=== PATIENT | female | born 1965 | race American Indian/Alaskan Native ===

== ENCOUNTER 2019-11-24 17:03 | Observation (INO) | payer BC ==
--- NOTE | 2019-11-24 17:24 | Emergency Department Report ---
Chief Complaint: Chest Pain Stated Complaint: CP/RT ARM NUMB - HPI History of Present Illness: 54 y/o fem p/w right sided numbness, pain, abd pain, reported hx of cp symptoms started within past 45 minutes accu check pending multiple complaints motor exam non focal endorses dec sensation to light touch to right arm and leg walks with steady gait cva vs radiculopathy Vital Signs 11/24/19 17:21 Temperature 98 F Pulse Rate 103 H Respiratory 20 Rate Blood Pressure 151/102 O2 Sat by Pulse 98 Oximetry MSE screening note: Focused history and physical exam performed. Due to findings the following was ordered: ED Disposition for MSE Condition: Stable
[2019-11-24 17:59] LABS: Basophils # (Auto) 0.1 K/mm3 (0.0-0.1); Basophils % (Auto) 0.9 % (0.0-1.8); Eosinophils # (Auto) 0.1 K/mm3 (0.0-0.4); Eosinophils % (Auto) 0.6 % (0.0-4.3); Hematocrit 42.9 % (30.3-42.9); Hemoglobin 14.4 gm/dl (10.1-14.3); Lymphocytes # (Auto) 3.8 K/mm3 (1.2-5.4); Lymphocytes % (Auto) 40.8 % (13.4-35.0); Mean Corpuscular HGB Conc 34 % (30-34); Mean Corpuscular Volume 87 fl (79-97); Monocytes # (Auto) 0.9 K/mm3 (0.0-0.8); Monocytes % (Auto) 9.6 % (0.0-7.3); Platelet Count 260 K/mm3 (140-440); Red Blood Count 4.95 M/mm3 (3.65-5.03); Red Cell Distribution Width 13.6 % (13.2-15.2)
--- NOTE | 2019-11-24 17:59 | Emergency Department Report ---
ED Neuro Deficit HPI - General Chief Complaint: Chest Pain Stated Complaint: CP/RT ARM NUMB Time Seen by Provider: 11/24/19 17:30 Source: patient Mode of arrival: Ambulatory Limitations: No Limitations - History of Present Illness Initial Comments: [facility] Date of Service: 11/24/2019 17:22:59 Impression: RO Acute Ischemic Stroke Comments: 54 year old female who presents with right side numbness. Presentation may be due to small stroke vs complex migraines vs anxiety. Mechanism of Stroke: Not Clear Metrics: Last Known Well: Unknown [facility] Notification Time: 11/24/2019 17:22:21 Arrival Time: 11/24/2019 17:03:00 Stamp Time: 11/24/2019 17:22:59 Time First Login Attempt: 11/24/2019 17:29:05 Video Start Time: 11/24/2019 17:29:05 Symptoms: Right side numbness NIHSS Start Assessment Time: 11/24/2019 17:43:04 Patient is not a candidate for tPA. Patient was not deemed candidate for tPA thrombolytics because of Last Well Known Above 4.5 Hours. Video End Time: 11/24/2019 17:50:00 CT head was reviewed. Presentation is not suggestive of Large Vessel Occlusive disease. Advanced imaging was not obtained as the presentation was not suggestive of Large Vessel Occlusive Disease. ED Physician notified of diagnostic impression and management plan on 11/24/2019 17:57:10 Our recommendations are outlined below. Recommendations: Activate Stroke Protocol Admission/Order Set Stroke/Telemetry Floor Neuro Checks Bedside Swallow Eval DVT Prophylaxis IV Fluids, Normal Saline Head of Bed Below 30 Degrees Euglycemia and Avoid Hyperthermia (PRN Acetaminophen) Antiplatelet Therapy Recommended Recommended Scan: MRI Head Without Contrast MRA Head and Neck Without Contrast When Available - Stroke Protocol Echocardiogram - Transthoracic Echocardiogram Lipid Panel to Be Obtained, if Not Done in the Last Three Months Therapies: Physical Therapy, Occupational Therapy, Speech Therapy Assessment When Applicable Dysphaghia Screen: Swallow Evaluation, Bedside NPO Until Swallow Evaluation DVT prophylaxis: Choice of Primary Team Disposition: Follow up with Teleneurology Follow up Sign Out: Discussed with Emergency Department Provider History of Present Illness: Patient is a 54 year old Female. Patient was brought by private transportation with symptoms of Right side numbness 54 year old female who presents to the hospital because of right side numbness, right leg pain, and numbness in the bottom of her left foot. She has had symptoms on and off for the past week. She presented today because she was also having tingling abdominal pain and nausea. CT head was reviewed. Examination: 1A: Level of Consciousness - Alert; keenly responsive + 0 1B: Ask Month and Age - Both Questions Right + 0 1C: Blink Eyes & Squeeze Hands - Performs Both Tasks + 0 2: Test Horizontal Extraocular Movements - Normal + 0 3: Test Visual [place] - No Visual Loss + 0 4: Test Facial Palsy (Use Grimace if Obtunded) - Normal symmetry + 0 5A: Test Left Arm Motor Drift - No Drift for 10 Seconds + 0 5B: Test Right Arm Motor Drift - No Drift for 10 Seconds + 0 6A: Test Left Leg Motor Drift - No Drift for 5 Seconds + 0 6B: Test Right Leg Motor Drift - No Drift for 5 Seconds + 0 7: Test Limb Ataxia (FNF/Heel-Gilliland) - No Ataxia + 0 8: Test Sensation - Mild-Moderate Loss: Less Sharp/More Dull + 1 9: Test Language/Aphasia - Normal; No aphasia + 0 10: Test Dysarthria - Normal + 0 11: Test Extinction/Inattention - No abnormality + 0 NIHSS Score: 1 Patient was informed the Neurology Consult would happen via TeleHealth consult by way of interactive audio and video telecommunications and consented to receiving care in this manner. Due to the immediate potential for life-threatening deterioration due to underlying acute neurologic illness, I spent 35 minutes providing critical care. This time includes time for face to face visit via telemedicine, review of medical records, imaging studies and discussion of findings with providers, the patient and/or family. Dr Sara Saavedra [facility] Case [id number] - Related Data Allergies/Adverse Reactions: Allergies Allergy/AdvReac Type Severity Reaction Status Date / Time No Known Allergies Allergy Unverified 11/24/19 17:05 ED Review of Systems ROS: Stated complaint: CP/RT ARM NUMB Other details as noted in HPI ED Past Medical Hx - Past Medical History Previous Medical History?: Yes Additional medical history: hyperthyroid - Surgical History Past Surgical History?: Yes Additional Surgical History: myomectomy. eye surgery - Social History Smoking Status: Never Smoker Substance Use Type: None ED Neuro Physical Exam - General Limitations: No Limitations Suspected Stroke: Yes - NIHSS Assessment Interval: Baseline 1a. Level of Consciousness: alert/keenly responsive 1b. LOC Questions: answers both correctly 1c. LOC Commands: performs tasks correctly 2. Best Gaze: normal 3. Visual: no visual loss 4. Facial Palsy: normal symmetrical movement 5b. Motor Arm Right: no drift 5a. Motor Arm Left: no drift 6a. Motor Leg Left: no drift 6b. Motor Leg Right: no drift 7. Limb Ataxia: absent 8. Sensory: mild/moderate sensory loss 9. Best Language: no aphasia 10. Dysarthria: normal 11. Extinction/Inattention: no abnormality Total Score: 1 Stroke Severity: Minor Stroke ED Course Vital Signs 11/24/19 17:21 Temperature 98 F Pulse Rate 103 H Respiratory 20 Rate Blood Pressure 151/102 O2 Sat by Pulse 98 Oximetry Critical care attestation.: If time is entered above; I have spent that time in minutes in the direct care of this critically ill patient, excluding procedure time. ED Disposition Clinical Impression: Numbness Disposition: -09 OP ADMIT IP TO THIS HOSP Is pt being admited?: Yes Condition: Stable
[2019-11-24 18:09] LABS: INR 0.93 (0.87-1.13)
[2019-11-24 18:10] LABS: Thrombin Time 41.9 Sec. (15.1-19.6)
--- NOTE | 2019-11-24 18:12 | Cat Scan Report ---
CT HEAD WITHOUT CONTRAST INDICATION / CLINICAL INFORMATION: Stroke symptoms. TECHNIQUE: All CT scans at this location are performed using CT dose reduction for ALARA by means of automated e xposure control. COMPARISON: None available. FINDINGS: HEMORRHAGE: No evidence of intracranial hemorrhage or extra-axial fluid collection. EXTRA-AXIAL SPACES: Cortical sulci, sylvian fissures and basilar cisterns have an unremarkable appear ance. VENTRICULAR SYSTEM: The ventricular system is of normal size and configuration. CEREBRAL PARENCHYMA: No areas of abnormal brain parenchymal attenuation are identified. There is no i ndication of recent infarction. MIDLINE SHIFT OR HERNIATION: There is no mass effect. CEREBELLUM / BRAINSTEM: There is a subtle area of decreased attenuation in the left side of the mary. Small (5 mm diameter) pontine infarct, age indeterminant, cannot be excluded. INTRACRANIAL VESSELS:No abnormalities are identified on this noncontrast head CT. ORBITS: visualized portions of the orbits have an unremarkable appearance. SOFT TISSUES of HEAD: No significant abnormality. CALVARIUM: Evaluation of bone windows reveals no abnormalities. PARANASAL SINUSES / MASTOID AIR CELLS: Paranasal sinuses are free from inflammatory mucosal disease. Mastoid air cells are normally pneumatized. Craniocervical junction: There are about 8 mm of cerebellar tonsillar ectopia. There is crowding of t he medulla and cerebellar tonsils at the foramen magnum with decreased CSF attenuation material at th is level. Possibility of Chiari I malformation should be considered. IMPRESSION: 1. Small (5 mm diameter pontine infarction is suspected. This is age indeterminate. 2. 8 mm of cerebellar tonsillar ectopia. Consider possible Chiari I malformation. Signer Name: Andrew Medrano MD Signed: 11/24/2019 6:07 PM Workstation Name: [id number] [email or web address]
[2019-11-24 18:16] LABS: Alanine Aminotransferase 13 units/L (7-56); Albumin 4.2 g/dL (3.9-5); BUN/Creatinine Ratio 13; Blood Urea Nitrogen 8 mg/dL (7-17); Calcium 11.5 mg/dL (8.4-10.2); Hemolysis Index 28
[2019-11-24 18:17] LABS: Creatine Kinase MB < 1.0 ng/mL (0.0-4.0)
--- NOTE | 2019-11-24 19:25 | Emergency Department Report ---
ED Neuro Deficit HPI - General Chief Complaint: Chest Pain Stated Complaint: CP/RT ARM NUMB Time Seen by Provider: 11/24/19 17:30 Source: patient Mode of arrival: Ambulatory Limitations: No Limitations - History of Present Illness Initial Comments: 54-year-old female with history of hypothyroidism presents to ED with right arm and leg numbness 4 days. Patient denies weakness, headache. She also reports associated pain in the extremities. Patient denies neck or back pain. She reports right-sided chest pain that began approximately 45 minutes prior to arrival. She denies any shortness of breath, nausea or vomiting, or leg swelling. -: days(s) (4) Location: right arm, right leg Severity: moderate Improves With: none Worsens With: none On Anticoagulants: No Associated Symptoms: chest pain. denies: cough, diaphoresis, fever/chills, nausea/vomiting, shortness of breath - Related Data Home Medications: Previous Rx's Medication Instructions Recorded Last Taken Type Aspirin EC [Halfprin EC] 81 mg PO QDAY #30 tablet. 11/25/19 Unknown Rx AtorvaSTATin [Lipitor] 40 mg PO QHS #30 tab 11/25/19 Unknown Rx Allergies/Adverse Reactions: Allergies Allergy/AdvReac Type Severity Reaction Status Date / Time No Known Allergies Allergy Verified 11/24/19 22:52 ED Review of Systems ROS: Stated complaint: CP/RT ARM NUMB Other details as noted in HPI Comment: All other systems reviewed and negative Constitutional: denies: chills, fever Respiratory: denies: shortness of breath Cardiovascular: chest pain Gastrointestinal: abdominal pain. denies: nausea, vomiting Neurological: numbness. denies: headache ED Past Medical Hx - Past Medical History Previous Medical History?: Yes Additional medical history: hyperthyroid - Surgical History Past Surgical History?: Yes Additional Surgical History: myomectomy. eye surgery - Social History Smoking Status: Never Smoker Substance Use Type: None - Medications Home Medications: Home Medications Medication Instructions Recorded Confirmed Last Taken Type Aspirin EC [Halfprin EC] 81 mg PO QDAY #30 tablet. 11/25/19 Unknown Rx AtorvaSTATin [Lipitor] 40 mg PO QHS #30 tab 11/25/19 Unknown Rx ED Neuro Physical Exam - General Limitations: No Limitations General appearance: alert, in no apparent distress Suspected Stroke: Yes - Head Head exam: Present: atraumatic, normocephalic - Eye Eye exam: Present: normal appearance, PERRL, EOMI - ENT ENT exam: Present: mucous membranes moist - Neck Neck exam: Present: normal inspection - Respiratory Respiratory exam: Present: normal lung sounds bilaterally. Absent: respiratory distress - Cardiovascular Cardiovascular Exam: Present: regular rate, normal rhythm - GI/Abdominal GI/Abdominal exam: Present: soft. Absent: distended, tenderness - Extremities Exam Extremities exam: Present: normal inspection. Absent: pedal edema, calf tenderness - Neurological Exam Neurological exam: Present: alert, oriented X3 - NIHSS Assessment Interval: Baseline 1a. Level of Consciousness: alert/keenly responsive 1b. LOC Questions: answers both correctly 1c. LOC Commands: performs tasks correctly 2. Best Gaze: normal 3. Visual: no visual loss 4. Facial Palsy: normal symmetrical movement 5b. Motor Arm Right: no drift 5a. Motor Arm Left: no drift 6a. Motor Leg Left: no drift 6b. Motor Leg Right: no drift 7. Limb Ataxia: absent 8. Sensory: mild/moderate sensory loss 9. Best Language: no aphasia 10. Dysarthria: normal 11. Extinction/Inattention: no abnormality Total Score: 1 Stroke Severity: Minor Stroke ED Course Vital Signs 11/24/19 11/24/19 11/24/19 17:21 17:55 18:00 Temperature 98 F Pulse Rate 103 H 81 75 Respiratory 20 20 15 Rate Blood Pressure 151/102 O2 Sat by Pulse 98 99 97 Oximetry 11/24/19 11/24/19 11/24/19 18:16 18:30 18:45 Temperature Pulse Rate 73 80 72 Respiratory 9 L 15 11 L Rate Blood Pressure 132/90 131/87 O2 Sat by Pulse 99 99 98 Oximetry 11/24/19 11/24/19 11/24/19 19:00 19:13 19:15 Temperature Pulse Rate 77 78 Respiratory 18 17 15 Rate Blood Pressure 132/86 132/86 132/76 O2 Sat by Pulse 99 98 Oximetry 11/24/19 11/24/19 11/24/19 21:58 22:00 22:10 Temperature Pulse Rate Respiratory Rate Blood Pressure 124/82 130/85 130/85 O2 Sat by Pulse 98 99 95 Oximetry 11/24/19 11/24/19 11/24/19 22:20 22:30 22:40 Temperature Pulse Rate Respiratory Rate Blood Pressure 110/64 113/72 132/76 O2 Sat by Pulse 95 95 Oximetry 11/24/19 11/24/19 11/24/19 22:50 23:00 23:10 Temperature Pulse Rate Respiratory Rate Blood Pressure 116/82 112/72 112/72 O2 Sat by Pulse 97 95 Oximetry 11/24/19 11/24/19 11/24/19 23:20 23:30 23:40 Temperature Pulse Rate Respiratory Rate Blood Pressure 116/73 113/70 113/70 O2 Sat by Pulse 96 92 95 Oximetry 11/24/19 11/25/19 23:50 00:00 Temperature Pulse Rate Respiratory Rate Blood Pressure 116/72 116/72 O2 Sat by Pulse 96 97 Oximetry - Lab Data Result diagrams: 11/25/19 00:24 11/25/19 00:24 Lab Results 11/24/19 11/24/19 11/24/19 Range/Units 17:51 17:51 17:51 WBC 9.3 (4.5-11.0) K/mm3 RBC 4.95 (3.65-5.03) M/mm3 Hgb 14.4 H (10.1-14.3) gm/dl Hct 42.9 (30.3-42.9) % MCV 87 (79-97) fl MCH 29 (28-32) pg MCHC 34 (30-34) % RDW 13.6 (13.2-15.2) % Plt Count 260 (140-440) K/mm3 Lymph % (Auto) 40.8 H (13.4-35.0) % Dickens % (Auto) 9.6 H (0.0-7.3) % Eos % (Auto) 0.6 (0.0-4.3) % Baso % (Auto) 0.9 (0.0-1.8) % Lymph # 3.8 (1.2-5.4) K/mm3 Dickens # 0.9 H (0.0-0.8) K/mm3 Eos # 0.1 (0.0-0.4) K/mm3 Baso # 0.1 (0.0-0.1) K/mm3 Seg Neutrophils % 48.1 (40.0-70.0) % Seg Neutrophils # 4.5 (1.8-7.7) K/mm3 PT 12.6 (12.2-14.9) Sec. INR 0.93 (0.87-1.13) APTT 30.0 (24.2-36.6) Sec. Thrombin Time 41.9 H (15.1-19.6) Sec. D-Dimer (0-234) ng/mlDDU Sodium 137 (137-145) mmol/L Potassium 4.1 (3.6-5.0) mmol/L Chloride 101.1 (98-107) mmol/L Carbon Dioxide 22 (22-30) mmol/L Anion Gap 18 mmol/L BUN 8 (7-17) mg/dL Creatinine 0.6 L (0.7-1.2) mg/dL Estimated GFR > 60 ml/min BUN/Creatinine Ratio 13 % Glucose 122 H (65-100) mg/dL Calcium 11.5 H (8.4-10.2) mg/dL Total Bilirubin 0.40 (0.1-1.2) mg/dL AST 15 (5-40) units/L ALT 13 (7-56) units/L Alkaline Phosphatase 125 (35-129) units/L Total Creatine Kinase 73 (30-135) units/L CK-MB (CK-2) < 1.0 (0.0-4.0) ng/mL CK-MB (CK-2) Rel Index 1.3 (0-4) Troponin T < 0.010 (0.00-0.029) ng/mL Total Protein 8.0 (6.3-8.2) g/dL Albumin 4.2 (3.9-5) g/dL Albumin/Globulin Ratio 1.1 % 11/24/19 Range/Units 18:50 WBC (4.5-11.0) K/mm3 RBC (3.65-5.03) M/mm3 Hgb (10.1-14.3) gm/dl Hct (30.3-42.9) % MCV (79-97) fl MCH (28-32) pg MCHC (30-34) % RDW (13.2-15.2) % Plt Count (140-440) K/mm3 Lymph % (Auto) (13.4-35.0) % Dickens % (Auto) (0.0-7.3) % Eos % (Auto) (0.0-4.3) % Baso % (Auto) (0.0-1.8) % Lymph # (1.2-5.4) K/mm3 Dickens # (0.0-0.8) K/mm3 Eos # (0.0-0.4) K/mm3 Baso # (0.0-0.1) K/mm3 Seg Neutrophils % (40.0-70.0) % Seg Neutrophils # (1.8-7.7) K/mm3 PT (12.2-14.9) Sec. INR (0.87-1.13) APTT (24.2-36.6) Sec. Thrombin Time (15.1-19.6) Sec. D-Dimer 689.21 H (0-234) ng/mlDDU Sodium (137-145) mmol/L Potassium (3.6-5.0) mmol/L Chloride (98-107) mmol/L Carbon Dioxide (22-30) mmol/L Anion Gap mmol/L BUN (7-17) mg/dL Creatinine (0.7-1.2) mg/dL Estimated GFR ml/min BUN/Creatinine Ratio % Glucose (65-100) mg/dL Calcium (8.4-10.2) mg/dL Total Bilirubin (0.1-1.2) mg/dL AST (5-40) units/L ALT (7-56) units/L Alkaline Phosphatase (35-129) units/L Total Creatine Kinase (30-135) units/L CK-MB (CK-2) (0.0-4.0) ng/mL CK-MB (CK-2) Rel Index (0-4) Troponin T (0.00-0.029) ng/mL Total Protein (6.3-8.2) g/dL Albumin (3.9-5) g/dL Albumin/Globulin Ratio % - EKG Data -: EKG Interpreted by Pa EKG shows normal: sinus rhythm, axis, intervals, QRS complexes, ST-T waves Rate: normal Interpretation: no acute changes, LVH - Radiology Data Radiology results: report reviewed, image reviewed - Medical Decision Making Pt w/ right sided numbness and right sided chest pain. Initially presented as stroke alert. CT Head negative for any acute findings. Pt seen and evaluated by teleneurologist, recommends admission for stroke workup. Not a candidate for tPA or interventional procedures. D-dimer obtained due to chest pain and found to be elevated. CTA Chest negative for PE or any other acute findings. Will admit to hospitalist for further workup. - Differential Diagnosis CVA, anxiety, ACS, PE Critical care attestation.: If time is entered above; I have spent that time in minutes in the direct care of this critically ill patient, excluding procedure time. ED Disposition Clinical Impression: Numbness, Acute chest pain Disposition: DC-09 OP ADMIT IP TO THIS HOSP Is pt being admited?: Yes Condition: Stable Time of Disposition: 21:47
--- NOTE | 2019-11-24 19:38 | XRay Report ---
CHEST 1 VIEW INDICATION: hx of abd pain cp. COMPARISON: None. FINDINGS: Support devices: None. Heart: Normal. Lungs/Pleura: No acute pulmonary or pleural findings. IMPRESSION: 1. No acute findings. Signer Name: Ollie Alfredo MD Signed: 11/24/2019 7:33 PM Workstation Name: [id number]
--- NOTE | 2019-11-24 21:11 | Cat Scan Report ---
CTA CHEST WITH IV CONTRAST INDICATION: chest pain. TECHNIQUE: Axial CT images were obtained through the chest after injection of IV contrast. 3 plane MIP reconstru ctions were produced. All CT scans at this location are performed using CT dose reduction for ALARA b y means of automated exposure control. COMPARISON: No prior chest CTs. FINDINGS: Pulmonary Arteries: No pulmonary emboli. Thoracic Aorta: No acute abnormality. Heart: Normal. Lungs: No acute air space or interstitial disease. Within the right lower lobe, there is a 4 mm nonca lcified nodule on series 2 image 207. There is scarring with chronic collapse in the right middle lob e. Pleura: No pleural effusion. No pneumothorax. Lymph Nodes: No significant adenopathy. Additional Findings: None. Upper Abdomen: No acute findings. Skeletal Structures: No significant osseous abnormality. IMPRESSION: 1. No CT evidence for pulmonary embolism. 2. No acute findings. 3. 4 mm noncalcified superior right lower lobe pulmonary nodule. See below for recommendations. 4. Scarring and volume loss in the right middle lobe. INCIDENTAL PULMONARY NODULE RECOMMENDATIONS Solid Nodule size <6 mm -- Single or Multiple - Low Risk Patient: No routine follow-up - High Risk Patient: Optional CT at 12 months Note These recommendations do not apply to lung cancer screening, patients with immunosuppression, o r patients with known primary cancer. Note Newly detected indeterminate nodule in persons 35 years of age or older. Persons under the age of 35 should not receive follow-up unless there is a known primary cancer. Low Risk Patient -- minimal or absent history of smoking and of other known risk factors. High Risk Patient -- history of smoking or of other known risk factors. Nodule dimensions are average of long and short axes, rounded to the nearest millimeter. Based on 2017 Fleischner Society Guidelines found in Radiology 2017 284:228-243. [email or web address] [email or web address] Signer Name: Ollie Alfredo MD Signed: 11/24/2019 9:07 PM Workstation Name: [id number]
[2019-11-24] MEDS ORDERED: ASPIRIN 325 MG TAB PO ONE (21:39)
[2019-11-24] MEDS ORDERED: ONDANSETRON 4 MG/2 ML INJ IV PRN (22:34)
[2019-11-24] MEDS ORDERED: METOCLOPRAMIDE 10 MG TAB PO PRN (22:34)
[2019-11-24] MEDS ORDERED: ACETAMINOPHEN 325 MG TAB PO PRN (22:34)
[2019-11-24] MEDS ORDERED: MAGNESIUM HYDROXIDE (MOM) ORAL LIQD UDC PO PRN (22:34)
[2019-11-24] MEDS ORDERED: MORPHINE 4 MG/1 ML INJ IV PRN (22:34)
[2019-11-24] MEDS ORDERED: PROMETHAZINE 25 MG RECT SUPP PR PRN (22:34)
[2019-11-24] MEDS ORDERED: NITROGLYCERIN 0.4 MG TAB SUBL SL PRN (22:34)
--- NOTE | 2019-11-24 23:41 | History and Physical Report ---
History of Present Illness Date of examination: 11/24/19 Date of admission: 11/24/2019 Chief complaint: Chest pain Right upper extremity numbness and weakness History of present illness: 54-year-old -[place] female presenting to the emergency room today compl aining of right-sided arm weakness which has been ongoing for about 4 days. Denies any fever or chills, no nausea vomiting and no diarrhea. Less than an hour prior to reporting to the emergency room patient also indicates that she was having right-sided chest pain. There was no no relieving or exacerbating factor. Patient has had some mild headache, denies any blurry vision and denies any dizziness. Evaluation and work-up in the ER was unremarkable. Patient to be further evaluated for possible CVA. Past History Past Medical History: hyperthyroidism Past Surgical History: Other (Myomectomy, eye surgery in childhood) Social history: no significant social history Family history: hypertension (Hypertension in grandmother) Medications and Allergies Allergies Allergy/AdvReac Type Severity Reaction Status Date / Time No Known Allergies Allergy Verified 11/24/19 22:52 Home Medications Medication Instructions Recorded Confirmed Last Taken Type No Known Home Medications [No 11/25/19 11/25/19 Unknown History Reported Home Medications] Active Meds: Active Medications Acetaminophen (Tylenol) 650 mg PO Q4H PRN PRN Reason: Pain MILD(1-3)/Fever >100.5/COCHRAN Aspirin (Aspirin) 325 mg PO QDAY [facility] Bisacodyl (Dulcolax) [address] QDAY PRN PRN Reason: Constipation Magnesium Hydroxide (Milk Of Magnesia) 30 ml PO Q4H PRN PRN Reason: Constipation Metoclopramide HCl (Reglan) 10 mg PO Q6H PRN PRN Reason: Nausea And Vomiting Morphine Sulfate (Morphine) 2 mg IV Q5MIN PRN PRN Reason: Chest Pain Nitroglycerin (Nitrostat) 0.4 mg SL Q5M PRN PRN Reason: Chest Pain Ondansetron HCl (Zofran) 4 mg IV Q8H PRN PRN Reason: Nausea And Vomiting Promethazine HCl (Phenergan) [address] Q6H PRN PRN Reason: Nausea And Vomiting Sodium Chloride (Sodium Chloride Flush Syringe 10 Ml) 10 ml IV BID [facility] Sodium Chloride (Sodium Chloride Flush Syringe 10 Ml) 10 ml IV PRN PRN PRN Reason: LINE FLUSH Review of Systems Constitutional: no fever, no chills Cardiovascular: chest pain, no palpitations, no syncope Respiratory: no cough, no shortness of breath Gastrointestinal: no nausea, no vomiting, no diarrhea Integumentary: no rash, no pruritis Neurological: weakness, numbness, headaches Exam - Constitutional Vitals: Temp Pulse Resp BP Pulse Ox 98 F 77 15 132/76 99 11/24/19 17:21 11/24/19 19:00 11/24/19 19:15 11/24/19 19:15 11/24/19 19:00 General appearance: Present: no acute distress, well-nourished - EENT Eyes: Present: PERRL, EOM intact ENT: hearing intact, clear oral mucosa, dentition normal - Neck Neck: Present: supple, normal ROM - Respiratory Respiratory effort: normal Respiratory: bilateral: CTA - Cardiovascular Rhythm: regular Heart Sounds: Present: S1 & S2 - Extremities Extremities: no ischemia, No edema, Full ROM Peripheral Pulses: within normal limits - Abdominal General gastrointestinal: Present: soft, non-tender, non-distended - Integumentary Integumentary: Present: clear, warm, dry - Musculoskeletal Musculoskeletal: strength equal bilaterally - Psychiatric Psychiatric: appropriate mood/affect, intact judgment & insight, cooperative - Neurologic Neurologic: CNII-XII intact, moves all extremities Results - Labs CBC & Chem 7: 11/25/19 00:24 11/25/19 00:24 Labs: Abnormal lab results 11/24/19 11/24/19 11/24/19 Range/Units 17:51 17:51 17:51 Hgb 14.4 H (10.1-14.3) gm/dl Lymph % (Auto) 40.8 H (13.4-35.0) % Harris % (Auto) 9.6 H (0.0-7.3) % Harris # 0.9 H (0.0-0.8) K/mm3 Thrombin Time 41.9 H (15.1-19.6) Sec. D-Dimer (0-234) ng/mlDDU Creatinine 0.6 L (0.7-1.2) mg/dL Glucose 122 H (65-100) mg/dL Calcium 11.5 H (8.4-10.2) mg/dL 11/24/19 Range/Units 18:50 Hgb (10.1-14.3) gm/dl Lymph % (Auto) (13.4-35.0) % Harris % (Auto) (0.0-7.3) % Harris # (0.0-0.8) K/mm3 Thrombin Time (15.1-19.6) Sec. D-Dimer 689.21 H (0-234) ng/mlDDU Creatinine (0.7-1.2) mg/dL Glucose (65-100) mg/dL Calcium (8.4-10.2) mg/dL Assessment and Plan - Patient Problems (1) Acute chest pain Current Visit: Yes Status: Acute Plan to address problem: Possibly noncardiac. However will check serial cardiac enzymes. Patient will be placed on aspirin, sublingual nitroglycerin and IV morphine as needed for chest pain. Will monitor EKG. (2) Numbness Current Visit: Yes Status: Acute Plan to address problem: Etiology is unclear however patient is to be worked up for CVA (3) DVT prophylaxis Current Visit: Yes Status: Acute Plan to address problem: Patient placed on subcutaneous heparin. (4) Full code status Current Visit: Yes Status: Acute
[2019-11-25 01:00] LABS: Basophils % (Auto) 0.5 % (0.0-1.8); Eosinophils # (Auto) 0.1 K/mm3 (0.0-0.4); Eosinophils % (Auto) 0.7 % (0.0-4.3); Hemoglobin 14.5 gm/dl (10.1-14.3); Mean Corpuscular HGB Conc 33 % (30-34); Mean Corpuscular Volume 87 fl (79-97); Monocytes # (Auto) 0.7 K/mm3 (0.0-0.8); Monocytes % (Auto) 7.2 % (0.0-7.3); Platelet Count 280 K/mm3 (140-440); Red Blood Count 5.04 M/mm3 (3.65-5.03); Red Cell Distribution Width 13.4 % (13.2-15.2)
[2019-11-25 01:13] LABS: BUN/Creatinine Ratio 15; Blood Urea Nitrogen 9 mg/dL (7-17); Calcium 11.5 mg/dL (8.4-10.2); Hemolysis Index 4
[2019-11-25 03:30] LABS: Chol/HDL Ratio 4.23 %
[2019-11-25 07:48] VITALS: BP 128/84
--- NOTE | 2019-11-25 08:35 | Consultation ---
History of Present Illness Consult date: 11/25/19 Reason for Consult: right side numbness History of present illness: 54-year-old -[place]cu[place] female presenting to the emergency room yesterday complaining of right-sided arm weakness which has been ongoing for about 6-7 daysthis is associated with right side numbness and involve face arm and she noticed swelling in right leg and intermittent chest cantu pain and bilateral eyes pain and pain on top of the head all happen on and off with spells last 5- 10 minutes she denied anxiety or stress except her uncle is sick lately!!!! Denies any fever or chills, no nausea vomiting and no diarrhea. Less than an hour prior to reporting to the emergency room patient also indicates that she was having right-sided chest pain. There was no no relieving or exacerbating factor. Patient has had some mild headache, denies any blurry vision and denies any dizziness. Evaluation and work-up in the ER including CT brain is suggestive of posible r emote ? pontine hypodensity remote , LDL#144 she was admited for MRI brain and started on ASA 325 mg according to her she is feeling better today she does not smoke or drink no hx of recreational drug intake. Past History Past Medical History: hyperthyroidism Past Surgical History: Other (Myomectomy, eye surgery in childhood) Social history: no significant social history Family history: hypertension (Hypertension in grandmother) Past History Past Medical History: hyperthyroidism Past Surgical History: Other (Myomectomy, eye surgery in childhood) Social history: no significant social history Family history: hypertension (Hypertension in grandmother) Medications and Allergies Allergies Allergy/AdvReac Type Severity Reaction Status Date / Time No Known Allergies Allergy Verified 11/24/19 22:52 Home Medications Medication Instructions Recorded Confirmed Last Taken Type No Known Home Medications [No 11/25/19 11/25/19 Unknown History Reported Home Medications] Active Meds: Active Medications Acetaminophen (Tylenol) 650 mg PO Q4H PRN PRN Reason: Pain MILD(1-3)/Fever >100.5/COCHRAN Aspirin (Aspirin) 325 mg PO QDAY [facility] Bisacodyl (Dulcolax) 10 mg [place] QDAY PRN PRN Reason: Constipation Heparin Sodium (Porcine) (Heparin) 5,000 unit SUB-Q Q8HR [facility] Magnesium Hydroxide (Milk Of Magnesia) 30 ml PO Q4H PRN PRN Reason: Constipation Metoclopramide HCl (Reglan) 10 mg PO Q6H PRN PRN Reason: Nausea And Vomiting Morphine Sulfate (Morphine) 2 mg IV Q5MIN PRN PRN Reason: Chest Pain Nitroglycerin (Nitrostat) 0.4 mg SL Q5M PRN PRN Reason: Chest Pain Ondansetron HCl (Zofran) 4 mg IV Q8H PRN PRN Reason: Nausea And Vomiting Promethazine HCl (Phenergan) 25 mg [place] Q6H PRN PRN Reason: Nausea And Vomiting Sodium Chloride (Sodium Chloride Flush Syringe 10 Ml) 10 ml IV BID [facility] Sodium Chloride (Sodium Chloride Flush Syringe 10 Ml) 10 ml IV PRN PRN PRN Reason: LINE FLUSH Review of Systems All systems: negative Physical Examination - Vital Signs Vital Signs: Vital Signs Temp Pulse Resp BP Pulse Ox 98 F 103 H 20 151/102 98 11/24/19 17:21 11/24/19 17:21 11/24/19 17:21 11/24/19 17:21 11/24/19 17:21 - Constitutional General appearance: comfortable - EENT EENT: Present: PERRL, mucous membranes moist - Respiratory Respiratory: Present: chest non-tender, lungs clear - Cardiovascular Cardiovascular: Present: regular rate, normal S1, normal S2 Extremities: Present: no peripheral edema bilatateraly, no clubbing, cyanosis, no inflammation, no ischemia or petechiae - Gastrointestinal Gastrointestinal: Present: normoactive bowel sounds - Integumentary Integumentary: Present: normal - Neurologic Cranial nerve examination: PERRL, EOMI, V1/V2/V3 grossly intact, face symmetric, tongue midline, intact Speech examination: intact Sensorimotor examination: intact Detailed motor examination: grossly full strength in Reflexes: 1+: ankle, bicep, knee, tricep - Assessment Assessment Interval: 24 hours post onset of symptoms +-20 minutes - Level of Consciousness 1a. Level of Consciousness: alert/keenly responsive - LOC Questions 1b. LOC Questions: answers both correctly - LOC Command 1c. LOC Commands: performs tasks correctly - Visual 3. Visual: no visual loss - Facial Palsy 4. Facial Palsy: normal symmetrical movement - Motor Arm 5a. Motor Arm Left: no drift 5b. Motor Arm Right: no drift - Motor Leg 6a. Motor Leg Left: no drift 6b. Motor Leg Right: no drift - Limb Ataxia 7. Limb Ataxia: absent - Sensory 8. Sensory: normal - Best Language 9. Best Language: no aphasia - Dysarthria 10. Dysarthria: normal - Extinction and Inattention 11. Extinction/Inattention: no abnormality Results - Laboratory Findings CBC and BMP: 11/25/19 00:24 11/25/19 00:24 Abnormal Lab Findings: Abnormal Labs 11/24/19 11/24/19 11/24/19 17:51 17:51 17:51 RBC Hgb 14.4 H Hct Lymph % (Auto) 40.8 H [place] % (Auto) 9.6 H [place] # 0.9 H Thrombin Time 41.9 H D-Dimer Creatinine 0.6 L Glucose 122 H Calcium 11.5 H Cholesterol LDL Cholesterol Direct 11/24/19 11/25/19 11/25/19 18:50 00:24 00:24 RBC 5.04 H Hgb 14.5 H Hct 44.0 H Lymph % (Auto) 42.0 H [place] % (Auto) [place] # Thrombin Time D-Dimer 689.21 H Creatinine Glucose Calcium Cholesterol 216 H LDL Cholesterol Direct 144 H 11/25/19 00:24 RBC Hgb Hct Lymph % (Auto) [place] % (Auto) [place] # Thrombin Time D-Dimer Creatinine 0.6 L Glucose 119 H Calcium 11.5 H Cholesterol LDL Cholesterol Direct Assessment and Plan 1- 54 ys old female presented to hospital with complaint of right side numbness and or weakness on and off for a week this is associated with intermittent CP and eyes pain initiall NIH in ER #1 Ct brain is suggestive of hypodense [place] lesion ? 2- HLP LDl#144 3-Hx of hyperthyroidism 4- Possible underlying anxiety PLAN 1- she is admitted for CVa work up including MRI brain TTE,US carotid 2- ASA 81 mg daily 3- suggest add lipitor 40 mg 4- check thyroid function,b12 5- DVT prophlaxis will follow
[2019-11-25] MEDS ORDERED: diazePAM 2 MG TAB PO NR (09:39)
[2019-11-25] MEDS ORDERED: ASPIRIN 325 MG TAB PO SCH (10:00)
--- NOTE | 2019-11-25 10:56 | Consultation ---
History of Present Illness Consult date: 11/25/19 Requesting physician: MATT REYEZ Consult reason: chest pain History of present illness: The pt is a 54-year-old -B[place]utanese female with a past medical history of hyperparathyroidism. She is previously unknown to our practice. She presented with c/o right-sided arm weakness which has been ongoing for about 6-7 days associated with right sided numbness and right sided facial numbness. She also c/o intermittent right sided chest pain since yesterday and thus cardiology has been consulted. She denies any known prior cardiac issues. She denies any current cardiac complaints. Past History Past Medical History: hyperthyroidism Past Surgical History: Other (Myomectomy, eye surgery in childhood) Social history: no significant social history Family history: hypertension (Hypertension in grandmother) Medications and Allergies Allergies Allergy/AdvReac Type Severity Reaction Status Date / Time No Known Allergies Allergy Verified 11/24/19 22:52 Home Medications Medication Instructions Recorded Confirmed Last Taken Type No Known Home Medications [No 11/25/19 11/25/19 Unknown History Reported Home Medications] Active Meds: Active Medications Acetaminophen (Tylenol) 650 mg PO Q4H PRN PRN Reason: Pain MILD(1-3)/Fever >100.5/COCHRAN Aspirin (Aspirin) 325 mg PO QDAY [facility] Last Admin: 11/25/19 09:27 Dose: 325 mg Documented by: Bisacodyl (Dulcolax) 10 mg [place] QDAY PRN PRN Reason: Constipation Heparin Sodium (Porcine) (Heparin) 5,000 unit SUB-Q Q8HR [facility] Magnesium Hydroxide (Milk Of Magnesia) 30 ml PO Q4H PRN PRN Reason: Constipation Metoclopramide HCl (Reglan) 10 mg PO Q6H PRN PRN Reason: Nausea And Vomiting Morphine Sulfate (Morphine) 2 mg IV Q5MIN PRN PRN Reason: Chest Pain Nitroglycerin (Nitrostat) 0.4 mg SL Q5M PRN PRN Reason: Chest Pain Ondansetron HCl (Zofran) 4 mg IV Q8H PRN PRN Reason: Nausea And Vomiting Promethazine HCl (Phenergan) 25 mg [place] Q6H PRN PRN Reason: Nausea And Vomiting Sodium Chloride (Sodium Chloride Flush Syringe 10 Ml) 10 ml IV BID [facility] Last Admin: 11/25/19 09:27 Dose: 10 ml Documented by: Sodium Chloride (Sodium Chloride Flush Syringe 10 Ml) 10 ml IV PRN PRN PRN Reason: LINE FLUSH Review of Systems Constitutional: no weight loss, no weight gain, no fever, no chills, no sweats Ears, nose, mouth and throat: no ear pain, no nose pain, no sinus pressure, no sinus pain Cardiovascular: chest pain, no orthopnea, no palpitations, no rapid/irregular heart beat, no edema, no syncope, no lightheadedness, no shortness of breath, no dyspnea on exertion, no high blood pressure Respiratory: no cough, no shortness of breath, no dyspnea on exertion, no congestion, no wheezing, no pain on inspiration Gastrointestinal: no abdominal pain, no nausea, no vomiting, no diarrhea, no constipation, no change in bowel habits Genitourinary Female: no pelvic pain, no flank pain, no dysuria, no urinary frequency, no urgency Musculoskeletal: arm numbness/tingling (right sided), leg numbness/tingling (right sided), muscle weakness (right sided), no neck stiffness, no neck pain, no shooting arm pain, no low back pain, no shooting leg pain Integumentary: no rash, no pruritis, no redness, no sores, no wounds Neurological: weakness (right sided), numbness (right sided), no head injury, no paralysis, no parathesias, no seizures, no syncope Psychiatric: no anxiety Endocrine: no cold intolerance, no heat intolerance Hematologic/Lymphatic: no easy bruising, no easy bleeding Allergic/Immunologic: no urticaria Physical Examination Vital Signs Temp Pulse Resp BP Pulse Ox 98 F 103 H 20 151/102 98 11/24/19 17:21 11/24/19 17:21 11/24/19 17:21 11/24/19 17:21 11/24/19 17:21 General appearance: no acute distress HEENT: Positive: PERRL, Normocephaly, Mucus Membranes Moist Neck: Positive: neck supple, trachea midline Cardiac: Positive: Reg Rate and Rhythm, S1/S2 Lungs: Positive: Decreased Breath Sounds Neuro: Positive: Grossly Intact Abdomen: Negative: Tender Skin: Negative: Rash Musculoskeletal: No Pain Extremities: Absent: edema Results 11/25/19 00:24 11/25/19 00:24 Cardiac Enzymes 11/24/19 Range/Units 17:51 AST 15 (5-40) units/L CK-MB (CK-2) < 1.0 (0.0-4.0) ng/mL Coagulation 11/24/19 Range/Units 17:51 PT 12.6 (12.2-14.9) Sec. INR 0.93 (0.87-1.13) APTT 30.0 (24.2-36.6) Sec. Lipids 11/25/19 Range/Units 00:24 Triglycerides 86 (2-149) mg/dL Cholesterol 216 H (50-199) mg/dL HDL Cholesterol 51 (40-59) mg/dL Cholesterol/HDL Ratio 4.23 % CBC 11/24/19 11/25/19 Range/Units 17:51 00:24 WBC 9.3 9.5 (4.5-11.0) K/mm3 RBC 4.95 5.04 H (3.65-5.03) M/mm3 Hgb 14.4 H 14.5 H (10.1-14.3) gm/dl Hct 42.9 44.0 H (30.3-42.9) % Plt Count 260 280 (140-440) K/mm3 Lymph # 3.8 4.0 (1.2-5.4) K/mm3 [place] # 0.9 H 0.7 (0.0-0.8) K/mm3 Eos # 0.1 0.1 (0.0-0.4) K/mm3 Baso # 0.1 0.0 (0.0-0.1) K/mm3 Comprehensive Metabolic Panel 11/24/19 11/25/19 Range/Units 17:51 00:24 Sodium 137 138 (137-145) mmol/L Potassium 4.1 4.2 (3.6-5.0) mmol/L Chloride 101.1 101.8 (98-107) mmol/L Carbon Dioxide 22 23 (22-30) mmol/L BUN 8 9 (7-17) mg/dL Creatinine 0.6 L 0.6 L (0.7-1.2) mg/dL Glucose 122 H 119 H (65-100) mg/dL Calcium 11.5 H 11.5 H (8.4-10.2) mg/dL AST 15 (5-40) units/L ALT 13 (7-56) units/L Alkaline Phosphatase 125 (35-129) units/L Total Protein 8.0 (6.3-8.2) g/dL Albumin 4.2 (3.9-5) g/dL - Imaging and Cardiology Echo: pending EKG: report reviewed, image reviewed EKG interpretations - Telemetry EKG Rhythm: Sinus Rhythm - EKG Sinus rhythms and dysrhythmias: sinus rhythm Assessment and Plan Brain MRI and carotid studies pending. Neurology is following. Chest pain currently resolved. AMI r/o. Obtain echo. Plan for lexiscan MPI stress test in AM. NPO after MN. The patient has been seen in conjunction with Dr. Adair who agrees with the assessment and plan of care. - Patient Problems (1) CVA (cerebral vascular accident) Current Visit: Yes Status: Suspected (2) Chest pain Current Visit: Yes Status: Acute (3) Hyperparathyroidism Current Visit: Yes Status: Chronic
--- NOTE | 2019-11-25 11:41 | Vascular Lab Report ---
"DUPLEX DOPPLER ULTRASOUND CAROTID, BILATERAL INDICATION: stroke. COMPARISON: None available. FINDINGS: RIGHT CAROTID: No significant atherosclerotic plaque. CCA velocity: 87 cm/sec. ICA peak systolic velocity: 81 cm/sec. ICA/CCA PSV Ratio: Less than 1.. Right Vertebral Artery: Antegrade flow. LEFT CAROTID: No significant atherosclerotic plaque. CCA velocity: 81 cm/sec. ICA peak systolic velocity: 75 cm/sec. ICA/CCA PSV Ratio: Less than 1.. Left Vertebral Artery: Antegrade flow. IMPRESSION: 1. Right Internal Carotid Artery: Less than 50% diameter stenosis. 2. Left Internal Carotid Artery: Less than 50% diameter stenosis. Velocity criteria are extrapolated from diameter data as defined by the Society of Radiologists in Ul trasound Consensus Conference, Radiology 2003; 229;340-346. Degree of || ICA PSV || Plaque || ICA/CCA Stenosis (%) || (cm/sec) || estimate (%) || PSV Ratio - Normal...............<125..............None.................<2.0 - <50....................<125..............<50....................<2.0 - 50-69................125-230.........>50....................2.0-4.0 - >70 but <100....>230..............>50....................>4.0 - Near...................High, low, .....visible................variable occlusion or none - Total...................None.............visible;................N/A occlusion no lumen Signer Name: Ollie Alfredo MD Signed: 11/25/2019 11:36 AM Workstation Name: [id number]"
[2019-11-25 12:22] LABS: Bilirubin,Urine NEG (Negative); Blood,Urine NEG (Negative); Color,Urine Straw (Yellow); Protein,Urine <15 mg/dL mg/dL (Negative); Urobilinogen,Urine < 2.0 mg/dL (<2.0)
[2019-11-25] MEDS ORDERED: HEPARIN 5,000 UNIT/1 ML VIAL SUB-Q SCH (14:00)
--- NOTE | 2019-11-25 14:20 | Discharge Summary ---
Providers - Providers Date of Admission: 11/24/19 21:51 Attending physician: MATT REYEZ MD 11/24/19 Consult to Cardiac Rehabilitation [CONS] Routine Reason For Exam: Phase I 11/24/19 22:36 Consult to Dietitian/Nutrition [CONS] Routine Physician Instructions: Reason For Exam: Reason for Consult: Nutrition Recommendations Reason for Consult: Diet education Occupational Therapy Evaluate and Treat [CONS] Routine Comment: Reason For Exam: Neuro deficits Physical Therapy Evaluation and Treat [CONS] Routine Comment: Reason For Exam: Neuro deficits 11/24/19 23:45 Consult to Physician [CONS] Routine Comment: Consulting Provider: BECKY SHERIFF Physician Instructions: Reason For Exam: right sided numbness 11/25/19 07:48 Consult to Physician [CONS] Routine Comment: Consulting Provider: RONEY HOBSON Physician Instructions: Reason For Exam: chest pain Primary care physician: [facility] Hospitalization Reason for admission: GENERALIZED PAIN Condition: Stable Hospital course: 54-year-old -[place] female presenting to the emergency room today complaining of right-sided arm weakness which has been ongoing for about 4 days. Denies any fever or chills, no nausea vomiting and no diarrhea. Less than an hour prior to reporting to the emergency room patient also indicates that she was having right-sided chest pain. There was no no relieving or exacerbating factor. Patient has had some mild headache, denies any blurry vision and denies any dizziness. Evaluation and work-up in the ER was unremarkable. Patient to be further evaluated for possible CVA. Patient today states complete resolution of symptoms. While she understanding that she needs MRI of the Brain to further determine if the findings of the CT head accurate in respect to the small stroke mentioned she declined to get the MRI despite Valium being given. She would rather have this done outpatient. Advise follow-up with neurologist outpatient this can be arranged by the primary care physician for possible EMG as patient complaints of right-sided twitching especially in the lower extremity and this has happened recurrently a few times in the last month. Of also recommended outpatient follow-up with cardiology for stress test patient's complaint of chest pain is non-specific she reported pinch in multiple areas of the chest lasting less than 5 seconds and disappear and happened only once. CTA chest was done and was negative there is no swelling in the lower extremity and Homans test is negative. In the meantime she will be treated with aspirin and statin until MRI obtained outpatient rules out if patient had a CVA or not CVA Right lower extremity fasciculation Temporal headache with no blurred vision Atypical chest pain likely underlying anxiety. Possible underlying anxiety Possible neuropathy Disposition: DC-01 TO HOME OR SELFCARE Time spent for discharge: 35-minute Core Measure Documentation - Palliative Care Palliative Care/ Comfort Measures: Not Applicable - Core Measures Any of the following diagnoses?: none - Stroke Discharge Requirements Statin for LDL = or >70 mg/dl on DC: Yes Anticoag for atrial fib/atrial flutter: Not Applicable Antithrombotic for ischemic stroke: Yes Exam - Physical Exam Narrative exam: VITAL SIGNS: Reviewed. GENERAL: The patient appears normally developed, Vital signs as documented. HEAD: No signs of head trauma. EYES: Pupils are equal. Extraocular motions intact. EARS: Hearing grossly intact. MOUTH: Oropharynx is normal. NECK: No adenopathy, no JVD. CHEST: Chest with clear breath sounds bilaterally. No wheezes, rales, or rh onchi. CARDIAC: Regular rate and rhythm. S1 and S2, without murmurs, gallops, or rubs. VASCULAR: No Edema. Peripheral pulses normal and equal in all extremities. ABDOMEN: Soft, non tender and non distended. No rebound or guarding, and no masses palpated. Bowel Sounds normal. MUSCULOSKELETAL: Good range of motion of all major joints. Extremities without clubbing, cyanosis or edema. NEUROLOGIC EXAM: Alert and oriented x 3 No focal sensory or strength deficits. Speech normal. Follows commands. PSYCHIATRIC: Mood normal. SKIN: detial exam as documented in skin assessment - Constitutional Vitals: Temp Pulse Resp BP Pulse Ox 98.2 F 67 18 128/84 98 11/25/19 07:46 11/25/19 08:41 11/25/19 07:46 11/25/19 07:46 11/25/19 12:18 Plan Activity: advance as tolerated, fall precautions Diet: low fat Special Instructions: record daily weights, record daily BP diary Additional Instructions: Strongly recommend that the patient is to follow with primary care physician she does have a primary care physician I do not have the name at this time she will follow with them for recommendation for neurologist or follow with Dr. Schwartz. I also recommended that the patient follows with cardiology for outpatient stress test. Recommend outpatient MRI Follow up with: PRIMARY CAREMD [Primary Care Provider] - 3-5 Days MOHINDER MAYERS MD [Staff Physician] - 7 Days GOPAL ORTIZ MD [Staff Physician] - 7 Days Prescriptions: AtorvaSTATin [Lipitor] 40 mg PO QHS #30 tab Aspirin EC [Halfprin EC] 81 mg PO QDAY #30 tablet.
== END 2019-11-25 16:27 | disposition home or self-care (01) ==
LOC: ED 17:03 → 4A 21:51
PROVIDERS: ADMIT Internal Medicine Geriatric Medicine; ATTEND Internal Medicine
DX: R20.0 Anesthesia of skin (principal); R07.89 Other chest pain; E05.90 Thyrotoxicosis, unspecified without thyrotoxic crisis or storm; Z98.890 Other specified postprocedural states; Z79.82 Long term (current) use of aspirin
CPT/HCPCS: 36415; 70450; 71045; 71275; 80048; 80053; 80061; 81001; 82550; 82553; 84484; 85025; 85379; 85610; 85670; 85730; 93005; 93010; 93306; 93880; 99284; G0378; Q9967